=== PATIENT | female | born 1950 | race Caucasian/White ===

== ENCOUNTER 2020-11-03 15:23 | Emergency (ER) | payer OTHER, SELFPAY ==
[2020-11-03] VITALS (7 sets, daily range): BP systolic 141–195; BP diastolic 64–88; PULSE 61–69; RESP 15–20; TEMP 37.1; O2SAT 97–99
--- NOTE | 2020-11-03 16:12 | ED_ITS ---
HPI - Headache General Chief Complaint: Headache Stated Complaint: migraine, high blood pressure Time Seen by Provider: 11/03/20 16:00 Source: patient Mode of arrival: Ambulatory Limitations: no limitations History of Present Illness HPI Narrative: Patient is a 70-year-old female. Does have a history of migraine headaches that she states is normally controlled with Tylenol and ibuprofen. States that on Monday of last week she had 1 of her typical migraines which to get better with her normal treatment. On Monday evening she had a another headache. She states that it is a little unusual that she gets 2 headaches in 2 days in a row. She took Tylenol and ibuprofen however went to bed prior to the aura resolving. She states that because of this she woke up on Monday with a headache that she had most of the day but then it did resolve on its own. Monday she felt okay but earlier today she had other visual changes in a slight headache which has resolved. No fevers. No neck pain. She was instructed to come to the emergency department for further evaluation by her primary doctor. Review of Systems Constitutional Constitutional: Denies fever(s) and Reports headache(s) Eyes Eyes: Reports change in vision ENT Ears, Nose, Mouth, and Throat: Denies vertigo, Denies dizziness and Reports headache(s) Cardiovascular Cardiovascular: Denies chest pain and Denies dyspnea Respiratory Respiratory: Denies dyspnea Gastrointestinal Gastrointestinal: Denies abdominal pain Integumentary/Breasts Skin/Breast: Denies rash Neurologic Neurologic: Denies confusion, Denies vertigo, Denies dizziness and Reports headache(s) Psychiatric Psychiatric: Denies confusion Hematologic/Lymphatic On Anticoagulants: No Allergic/Immunologic Allergic/Immunologic: Reports system reviewed and no additional complaints, except as documented Patient History Medical History Migraine headache Social History lives independently: Yes Exam Initial Vital Signs Initial Vital Signs: Vital Signs Temperature 98.7 F 11/03/20 15:30 Pulse Rate 67 11/03/20 15:30 Respiratory Rate 16 11/03/20 15:30 Blood Pressure 195/88 H 11/03/20 15:30 Pulse Oximetry 99 11/03/20 15:30 Const General: cooperative and comfortable Limitations: mental status not altered HENMT Head: normal to inspection and normocephalic Eyes General: appearance normal, both eyes and all related structures Resp Effort & Inspection: normal respiratory effort Auscultation: clear to auscultation bilaterally Cardio Rate: regular rate Rhythm: regular rhythm GI Inspection: non-distended Palpation: soft Skin Lesions: no lesions Rashes: no rashes Neuro General: patient alert, patient awake and patient oriented x3 Cranial Nerves: CN's II-XI intact bilaterally Cognition: normal cognition Speech: speech normal Extrem General: normal to inspection and capillary refill normal Psych Appearance: grossly normal and well kempt Scores GCS [place] coma scale eye opening: Spontaneous [place] coma scale verbal response: Orientated [place] coma scale motor response: Obey commands [place] coma scale total score: 15 Course Orders Ordered: ED Orders 11/03/20 15:35 Basic Metabolic Panel Stat Complete Blood Count AUTO DIFF Stat 11/03/20 16:12 CT head/brain wo con Stat Vital Signs Vital signs: Vital Signs - 8 hr 11/03/20 15:30 11/03/20 15:43 11/03/20 15:44 Temperature 98.7 F Pulse Rate 67 64 66 Respiratory Rate 16 20 15 Blood Pressure 195/88 H 141/64 H Pulse Oximetry 99 99 99 11/03/20 16:00 11/03/20 16:01 Temperature Pulse Rate 63 Respiratory Rate 18 Blood Pressure 149/65 H Pulse Oximetry 98 MDM - Headache Lab Data Attestation: I reviewed the patient's lab results. Result diagrams: 11/03/20 15:35 11/03/20 15:35 Labs: Lab Results 11/03/20 11/03/20 Range/Units 15:35 15:35 WBC 8.2 (4.5-11.0) X10^3/uL RBC 4.43 (4.0-5.2) X10^6/uL Hgb 13.2 (12.0-16.0) g/dL Hct 39.4 (36-46) % MCV 88.9 (80-100) fL MCH 29.8 (26-34) PG MCHC 33.5 (30-36) % RDW 12.1 (11.6-14.8) % Plt Count 222 (150-400) X10^3/uL Neut % (Auto) 68.1 (50-75) % Lymph % (Auto) 24.4 L (25-40) % [place] % (Auto) 6.1 (3-14) % Eos % (Auto) 1.0 L (2-4) % Baso % (Auto) 0.4 (0-2) % Neut # (Auto) 5600 (1900-6430) /uL Lymph # (Auto) 2000 (0679-8615) /uL [place] # (Auto) 500 (0-900) /uL Eos # (Auto) 100 (0-450) /uL Baso # (Auto) 0 (0-100) /uL Sodium 140 (137-145) mmol/L Potassium 4.0 (3.4-5.1) mmol/L Chloride 105 (98-107) mmol/L Carbon Dioxide 29 (22-32) mmol/L BUN 21 H (7-17) mg/dL Creatinine 0.69 (0.52-1.04) mg/dL Estimated GFR > 60.0 (>60) mL/min BUN/Creatinine Ratio 30.4 H (6-22) Glucose 103 (80-110) mg/dL Calcium 9.2 (8.4-10.2) mg/dL Imaging Data CT scan - head: Radiologist's Impression: [address] Scan ReportSigned Patient: Brittany Chaves#: [id number]: 8Acct:[id number]/Sex: 70 / FDate of Service: 11/03/20Loc: EDAccession Number: [id number] Procedure: CT head/brain wo con Ordering Provider: Imer Liu D.O. PROCEDURE: CT HEAD/BRAIN WO CON INDICATIONS: headache and vision changes TECHNIQUE: Noncontrast 4.5 mm thick angled axial sections acquired from the foramen magnum to the vertex, with coronal and sagittal reformats. For radiation dose reduction, the following was used: automated exposure control, adjustment of mA and/or kV according to patient size. COMPARISON: None. FINDINGS: Image quality: Excellent. CSF spaces: Basal cisterns are patent. No extra-axial fluid collections. The ventricles are symmetric in size and shape. Brain: No intracranial bleeds or masses. There is cerebral volume loss for age, with resultant ventricular and sulcal prominence. There are periventricular and deep white matter chronic small vessel ischemic changes. There is intracranial internal carotid artery atherosclerosis. Skull and face: Calvarium and visualized facial bones appear intact, without suspicious lesions. Sinuses: Visualized sinuses and mastoids are clear. IMPRESSION: Normal noncontrast head CT. Dictated by: yBron Martin M.D. on 11/03/2020 at 15:28 Approved by: Byron Martin M.D. on 11/03/2020 at 15:28 ECG Data Attestation: I personally reviewed and interpreted this ECG as follows: Prior ECG tracings: not available for review Interpretation: Sinus rhythm Ventricular rate is 65 Normal axis Normal QRS Normal QTC No ST T wave changes MDM Narrative Medical decision making narrative: Patient has been asymptomatic since arrival here in the emergency department. She has an unremarkable neurologic exam. Her head CT and labs are unremarkable. Low suspicion for CVA/TIA/intracerebral hemorrhage. No signs of any intracerebral masses as well. We will hold on further workup for now. She was given return precautions and follow-up instructions. She expressed understanding and agreement. Discharge Plan Departure Patient Disposition: Home Clinical Impression: Headache Instructions: DI for Headache Activity Restrictions/Additional Instructions: Recommend that you contact your primary doctor for follow-up. I also recommend that you take your blood pressure at home like we discussed. Return to the [facility] for any new or worsening symptoms
[2020-11-03 16:20] LABS: Add Manual Diff / Slide Review NO; Basophils Absolute Auto 0 /uL (0-100); Basophils Percent Auto 0.4 % (0-2); Eosinophils Absolute Auto 100 /uL (0-450); Hematocrit 39.4 % (36-46); Hemoglobin 13.2 g/dL (12.0-16.0); Lymphocytes Absolute Auto 2000 /uL (1100-4500); Lymphocytes Percent Auto 24.4 % (25-40); Mean Corpuscular HGB Conc 33.5 % (30-36); Mean Corpuscular Hemoglobin 29.8 PG (26-34); Mean Corpuscular Volume 88.9 fL (80-100); Monocytes Absolute Auto 500 /uL (0-900); Monocytes Percent Auto 6.1 % (3-14); Neutrophils Absolute Auto 5600 /uL (1500-7000); Neutrophils Percent Auto 68.1 % (50-75); Platelet Count 222 X10^3/uL (150-400); Red Blood Cell Count 4.43 X10^6/uL (4.0-5.2); Red Cell Distribution Width 12.1 % (11.6-14.8); White Blood Cell Count 8.2 X10^3/uL (4.5-11.0)
[2020-11-03 16:26] LABS: BUN Creatinine Ratio 30.4 (6-22); Blood Urea Nitrogen 21 mg/dL (7-17); Calcium 9.2 mg/dL (8.4-10.2); Carbon Dioxide 29 mmol/L (22-32); Chloride 105 mmol/L (98-107); Estimated Glomerular Filt Rate > 60.0 mL/min (>60); Glucose 103 mg/dL (80-110); HEMOLYSIS < 15 (0-50); Sodium 140 mmol/L (137-145)
== END 2020-11-03 17:14 | disposition home or self-care (01) ==
PROVIDERS: Emergency Provider Emergency Medicine
DX: R51.9 Headache, unspecified (principal); I10 Essential (primary) hypertension
CPT/HCPCS: 36415; 70450; 80048; 85025; 93005; 99284

== ENCOUNTER 2022-07-01 10:20 | Emergency (ER) | payer OTHER, SELFPAY ==
[2022-07-01 10:25] VITALS: BP 196/84; PULSE 77; RESP 16; TEMP 36.2; O2SAT 97; BMI 23.2
--- NOTE | 2022-07-01 11:48 | ED.HA ---
HPI - Headache General Chief Complaint: Headache Stated Complaint: Migraine/Seeing Swirls/Dizzy Time Seen by Provider: 07/01/22 11:40 Source: patient Mode of arrival: Ambulatory Limitations: no limitations History of Present Illness HPI Narrative: 72-year-old female for evaluation of vertigo/lightheadedness. She is had this for the past month. Does seem to come and go. She is having currently. She also is complaining of vision changes. States when she closes her eyes she sees streaking and colors. She does have a history of ?migraines. She is never seen a neurologist nor headache. This diagnosis came from primary provider. She states with her migraine she never gets a headache but does get vision disturbances although it is different from what she has now. She states that normally her vision disturbances are black circles in her eyes. She has tried Tylenol and ibuprofen without any improvement. Did see her primary doctor yesterday and a referral has been placed for Neurology. Related Data Previous Rx's Medication Instructions Recorded sumatriptan 20 mg/actuation nasal 20 mg intranasal Q2H PRN migraine 07/01/22 spray (Imitrex) headache #6 ea Review of Systems Constitutional Constitutional: Reports system reviewed and no additional complaints, except as documented Eyes Eyes: Reports system reviewed and no additional complaints, except as documented Cardiovascular Cardiovascular: Reports system reviewed and no additional complaints, except as documented Respiratory Respiratory: Reports system reviewed and no additional complaints, except as documented Gastrointestinal Gastrointestinal: Reports system reviewed and no additional complaints, except as documented Integumentary/Breasts Skin/Breast: Reports system reviewed and no additional complaints, except as documented Neurologic Neurologic: Reports system reviewed and no additional complaints, except as documented Hematologic/Lymphatic On Anticoagulants: No Patient History Medical History Migraine headache Social History lives independently: Yes Exam Initial Vital Signs Initial Vital Signs: Vital Signs Temperature 97.2 F L 07/01/22 10:25 Pulse Rate 77 07/01/22 10:25 Respiratory Rate 16 07/01/22 10:25 Blood Pressure 196/84 H 07/01/22 10:25 Pulse Oximetry 97 07/01/22 10:25 Oxygen Delivery Method 07/01/22 10:25 Const General: cooperative, comfortable and No ill appearing HENMT Head: normal to inspection and normocephalic Face and sinus: normal facial exam Mouth: oral mucosae normal Eyes General: Yes appearance normal, both eyes and all related structures Pupils: PERRL EOM: EOM intact bilaterally Resp Effort & Inspection: normal respiratory effort Auscultation: clear to auscultation bilaterally Cardio Rate: regular rate Rhythm: regular rhythm Skin General: no rashes or lesions noted Neuro General: patient alert, patient awake, patient oriented x3 and moves all extremities Cranial Nerves: CN's II-XI intact bilaterally Cognition: normal cognition Speech: speech normal Motor: muscle tone normal throughout Sensory Exam: no sensory deficits noted Extrem General: normal to inspection and capillary refill normal Psych Appearance: grossly normal and well kempt Course Orders Ordered: ED Orders 07/01/22 10:34 Basic Metabolic Panel Stat Complete Blood Count AUTO DIFF Stat 07/01/22 11:49 CT head/brain wo con Stat 07/01/22 12:46 MR stroke Stat Discontinued Medications Sumatriptan Succinate (Sumatriptan 20 Mg [place]) 20 mg NASAL NOW ONE Stop: 07/01/22 11:50 Last Admin: 07/01/22 12:08 Dose: 20 mg Documented By: CTS Vital Signs Vital signs: Vital Signs - 8 hr 07/01/22 10:25 07/01/22 12:55 07/01/22 12:55 Temperature 97.2 F L Pulse Rate 77 63 Respiratory Rate 16 Blood Pressure 196/84 H 147/67 H Pulse Oximetry 97 98 Oxygen Delivery Method Room Air MDM - Headache Lab Data Attestation: I reviewed the patient's lab results. 07/01/22 10:34 07/01/22 10:34 Labs: Lab Results 07/01/22 07/01/22 Range/Units 10:34 10:34 WBC 7.8 (4.5-11.0) X10^3/uL RBC 4.62 (4.0-5.2) X10^6/uL Hgb 13.3 (12.0-16.0) g/dL Hct 40.1 (36-46) % MCV 86.7 (80-100) fL MCH 28.8 (26-34) PG MCHC 33.2 (30-36) % RDW 12.2 (11.6-14.8) % Plt Count 217 (150-400) X10^3/uL Neut % (Auto) 64.4 (50-75) % Lymph % (Auto) 29.3 (25-40) % [place] % (Auto) 4.0 (3-14) % Eos % (Auto) 1.9 L (2-4) % Baso % (Auto) 0.4 (0-2) % Neut # (Auto) 5000 (6710-5745) /uL Lymph # (Auto) 2300 (4782-0869) /uL [place] # (Auto) 300 (0-900) /uL Eos # (Auto) 200 (0-450) /uL Baso # (Auto) 0 (0-100) /uL Sodium 140 (137-145) mmol/L Potassium 4.0 (3.4-5.1) mmol/L Chloride 102 (98-107) mmol/L Carbon Dioxide 31 (22-32) mmol/L BUN 17 (7-17) mg/dL Creatinine 0.63 (0.52-1.04) mg/dL Estimated GFR > 60 (>60) mL/min BUN/Creatinine Ratio 27.0 H (6-22) Glucose 101 (80-110) mg/dL Calcium 8.8 (8.4-10.2) mg/dL Imaging Data CT scan - head: Radiologist's Impression: [place] [address] CT Scan Report Signed Patient: Renea Chaves MR#: [id number] : 1950 Acct:[id number] Age/Sex: 72 / F Date of Service: 07/01/22 Loc: ED Accession Number: [id number] ?? Procedure: CT head/brain wo con Ordering Provider: Imer Liu D.O. PROCEDURE:? CT HEAD/BRAIN WO CON ? INDICATIONS:? Dizziness, visual changes, eval for CVA ? TECHNIQUE:? Noncontrast 4.5 mm thick angled axial sections acquired from the foramen magnum to the vertex, with coronal and sagittal reformats.? For radiation dose reduction, the following was used:? automated exposure control, adjustment of mA and/or kV according to patient size.? ? COMPARISON:? [facility], CT, CT HEAD/BRAIN WO CON, 11/03/2020, 16:17. ? FINDINGS:? Image quality:? Excellent.? ? CSF spaces:? Basal cisterns are patent.? No extra-axial fluid collections.? The ventricles are symmetric in size and shape.? ? Brain:? No intracranial bleeds or masses.? There is cerebral volume loss for age, with resultant ventricular and sulcal prominence.? There are periventricular and deep white matter chronic small vessel ischemic changes.? There is intracranial internal carotid artery atherosclerosis.? ? Skull and face:? Calvarium and visualized facial bones appear intact, without suspicious lesions.? ? Sinuses:? Visualized sinuses and mastoids are clear.? ? ? IMPRESSION:? ? No imaging explanation is found for this patient's presenting symptoms.? ? Normal intracranial study for age. ? If it would be helpful for clinical management decision making, please consider a dedicated, scheduled brain MRI for further evaluation (assuming that there is no contraindication).? ? ? Dictated by: Byron Martin M.D. on 07/01/2022 at 11:28 ? ? Approved by: Byron Martin M.D. on 07/01/2022 at 11:29?? MDM Narrative Medical decision making narrative: Patient reports a vast improvement of her symptoms after the sumatriptan. She is never taken this medicine in the past. She does have a referral in to see Neurology but is yet to see a neurologist. Her head CT is unremarkable. She is no objective findings on her exam today. She has had dizziness off and on for the past month. Did consider posterior stroke and other stroke. Also considered BPPV however her exam is not consistent with that. She could very well be having an atypical migraine. She is been given a diagnosis of migraine but this was from a walk-in clinic and not from a headache specialist or her primary doctor. We attempted to do an MRI today for further evaluation however the patient was very claustrophobic and could not perform the MRI. We discussed options to include discharge home with a prescription for the sumatriptan and return if her symptoms worsen verses trying sedative medications and retry the MRI. We discussed the risks and benefits of this. Did discuss what we would be looking for with the MRI. After this discussion the patient opted to hold on any MRI for now. She will follow-up with neurology and also her primary doctor. She was given return precautions. She expressed understanding and agreement. Discharge Plan Departure Patient Disposition: Home Clinical Impression: Vision disturbance, Lightheadedness Instructions: DI for Dizziness-Nonvertigo Activity Restrictions/Additional Instructions: You were given a prescription for medicine called sumatriptan/Imitrex. Please take it as needed and as directed. I recommend that you follow-up with your primary doctor and also follow-up with Neurology. Return to the emergency department for any new symptoms. Prescriptions: New sumatriptan [Imitrex] 20 mg/actuation spray,non-aerosol 20 mg intranasal Q2H PRN (Reason: migraine headache) Qty: 6 0RF Rx Instructions: administer into one nostril as a single dose; if 2nd dose needed,administer into other nostril after at least 2 hrs, NTE 2 doses (40 mg) per episode Referrals: Herber Guy DO [Primary Care Provider] - Stand Alone Forms: Patient Portal/API
--- NOTE | 2022-07-01 11:49 | DI.CT.S_ITS ---
PROCEDURE: CT HEAD/BRAIN WO CON INDICATIONS: Dizziness, visual changes, eval for CVA TECHNIQUE: Noncontrast 4.5 mm thick angled axial sections acquired from the foramen magnum to the vertex, with coronal and sagittal reformats. For radiation dose reduction, the following was used: automated exposure control, adjustment of mA and/or kV according to patient size. COMPARISON: [facility], CT, CT HEAD/BRAIN WO CON, 11/03/2020, 16:17. FINDINGS: Image quality: Excellent. CSF spaces: Basal cisterns are patent. No extra-axial fluid collections. The ventricles are symmetric in size and shape. Brain: No intracranial bleeds or masses. There is cerebral volume loss for age, with resultant ventricular and sulcal prominence. There are periventricular and deep white matter chronic small vessel ischemic changes. There is intracranial internal carotid artery atherosclerosis. Skull and face: Calvarium and visualized facial bones appear intact, without suspicious lesions. Sinuses: Visualized sinuses and mastoids are clear. IMPRESSION: No imaging explanation is found for this patient's presenting symptoms. Normal intracranial study for age. If it would be helpful for clinical management decision making, please consider a dedicated, scheduled brain MRI for further evaluation (assuming that there is no contraindication). Dictated by: Byron Martin M.D. on 07/01/2022 at 11:28 Approved by: Byron Martin M.D. on 07/01/2022 at 11:29
[2022-07-01 11:59] LABS: Add Manual Diff / Slide Review NO; Basophils Absolute Auto 0 /uL (0-100); Basophils Percent Auto 0.4 % (0-2); Eosinophils Absolute Auto 200 /uL (0-450); Eosinophils Percent Auto 1.9 % (2-4); Hematocrit 40.1 % (36-46); Hemoglobin 13.3 g/dL (12.0-16.0); Lymphocytes Absolute Auto 2300 /uL (1100-4500); Lymphocytes Percent Auto 29.3 % (25-40); Mean Corpuscular HGB Conc 33.2 % (30-36); Mean Corpuscular Hemoglobin 28.8 PG (26-34); Mean Corpuscular Volume 86.7 fL (80-100); Monocytes Absolute Auto 300 /uL (0-900); Neutrophils Absolute Auto 5000 /uL (1500-7000); Neutrophils Percent Auto 64.4 % (50-75); Platelet Count 217 X10^3/uL (150-400); Red Blood Cell Count 4.62 X10^6/uL (4.0-5.2); Red Cell Distribution Width 12.2 % (11.6-14.8); White Blood Cell Count 7.8 X10^3/uL (4.5-11.0)
[2022-07-01 12:06] LABS: Blood Urea Nitrogen 17 mg/dL (7-17); Calcium 8.8 mg/dL (8.4-10.2); Carbon Dioxide 31 mmol/L (22-32); Chloride 102 mmol/L (98-107); Estimated Glomerular Filt Rate > 60 mL/min (>60); Glucose 101 mg/dL (80-110); HEMOLYSIS < 15 (0-50); Sodium 140 mmol/L (137-145)
[2022-07-01] MEDS: SUMAtriptan 20 MG SPRAY NASAL (12:08)
[2022-07-01 12:55] VITALS: BP 147/67; PULSE 63; O2SAT 98
[2022-07-01 14:10] VITALS: BP 152/67; PULSE 65; O2SAT 99
== END 2022-07-01 14:11 | disposition home or self-care (01) ==
PROVIDERS: Emergency Provider Emergency Medicine; PCP Family Medicine
DX: H53.9 Unspecified visual disturbance (principal); R42 Dizziness and giddiness
CPT/HCPCS: 36415; 70450; 80048; 85025; 99284